=== PATIENT | female | born 1995 | race Caucasian/White ===

== ENCOUNTER 2016-11-03 20:04 | Emergency (ER) | payer OTHER ==
[2016-11-03 20:36] VITALS: BP 123/73; PULSE 110; TEMP 98.9; BMI 44.4
[2016-11-03] MEDS ORDERED: IBUPROFEN 400 MG TABLET (FP) PO ONE ×3 (21:08→21:14)
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
== END 2016-11-03 23:00 | disposition home or self-care (01) ==
LOC: JER 20:04
DX: S29.8XXA Other specified injuries of thorax, initial encounter (principal); S69.91XA Unspecified injury of right wrist, hand and finger(s), initial encounter; V43.52XA Car driver injured in collision with other type car in traffic accident, initial encounter; W22.11XA Striking against or struck by driver side automobile airbag, initial encounter; Y92.414 Local residential or business street as the place of occurrence of the external cause; Y93.89 Activity, other specified; I10 Essential (primary) hypertension; E78.00 Pure hypercholesterolemia, unspecified; R73.03 Prediabetes; E66.01 Morbid (severe) obesity due to excess calories; Z68.41 Body mass index [BMI] 40.0-44.9, adult
CPT/HCPCS: 71020-TC; 73110-TC-RT; 84703; 99282-25